=== PATIENT | female | born 1990 | race Caucasian/White ===

== ENCOUNTER 2021-08-05 17:02 | Emergency (ER) | payer OTHER ==
[~2021-08-05] VITALS: Ht 157.5 cm; Wt 77.3 kg
[2021-08-05] MEDS ORDERED: CLAR10CA3 PO (17:13)
[2021-08-05] MEDS ORDERED: PRENTAB53 PO (17:13)
[2021-08-05 18:42] LABS: BASO % 0.5 % (0.0-1.0); EOS # 0.1 10^3/uL (0.0-0.5); EOS % 0.7 % (0.0-3.0); HEMATOCRIT 39.3 % (36.0-47.0); HEMOGLOBIN 13.6 g/dl (12.0-15.5); LYMPH # 2.2 10^3/uL (1.5-5.0); LYMPH % 26.1 % (24.0-44.0); MEAN CORPUSCULAR HEMOGLOBIN 31.4 pg (27.0-33.0); MEAN CORPUSCULAR HGB CONC 34.6 g/dl (32.0-36.5); MEAN CORPUSCULAR VOLUME 90.8 fl (80.0-96.0); MONO # 0.6 10^3/uL (0.0-0.8); MONO % 7.2 % (2.0-8.0); NEUTROPHILS # 5.6 10^3/uL (1.5-8.5); NEUTROPHILS % 65.3 % (36.0-66.0); PLATELET COUNT, AUTOMATED 300 10^3/uL (150-450); RED BLOOD COUNT 4.33 10^6/uL (4.00-5.40); WHITE BLOOD COUNT 8.6 10^3/uL (4.0-10.0)
[2021-08-05 19:55] VITALS: BP 122/75
== END 2021-08-05 19:56 | disposition home or self-care (01) ==
LOC: EDBD 17:02 → M ED 17:02
DX: O03.9 Complete or unspecified spontaneous abortion without complication (principal); Z88.0 Allergy status to penicillin; Z88.8 Allergy status to other drugs, medicaments and biological substances; Z79.899 Other long term (current) drug therapy; Z3A.08 8 weeks gestation of pregnancy